=== PATIENT | female | born 1955 | race Asian ===

== ENCOUNTER → 2016-09-13 | Outpatient (CLI) | payer MEDICARE, OTHER, MEDICAID ==
[~2016-09-13] MED LIST: ATIVAN 0.50.5 MG/TAB PO; ATIVAN PO; BENADRYL 50MG C50 MG PO; BENADRYL25 M2 PO; CALCIUM 600/VIT1 CAP PO; CALCIUM CARB W/1 TAB PO; COLACE 100100 MG/CAP PO; DEBROX OT; EFFEXOR 75M75 MG/TAB PO; ELAVIL10 MG PO; EPA FISH OIL1 SGL PO; FLAX SEED OIL1000 MG PO; FOSAMAX 70MG TA70 MG PO; GABAPENTIN100 M1 PO; GINKO BILOBA60 MG PO; IMODIUM 2MG CAPS2 MG PO; LAMICTAL ODT50 MG MM; LAMICTAL200 MG PO; LORTAB 5/500 501 TAB; MACROBID 1100 MG/CAP PO; MAREPA1200 MG PO; MIRALAX PA17 GM/Dose PO; MOTRIN 200200 MG/TAB PO; MULTI VITAMINS1 TAB PO; MULTIPLE VITAMI1 CAP PO; NORCO 325 MG-51 TAB PO; PHENERGAN25 MG RC; PRAVACHOL 20MG20 MG PO; PRAVACHOL20 MG PO; PROZAC20 MG PO; SENOKOT S 50 MG1 TAB PO; SINGULAIR10 MG PO; TYLENOL 325MG325 MG PO; TYLENOL W/COD1 UDTAB PO; VENTOLIN0.09 MG IH; VITAMIN C500 MG PO; VITAMIN D1000 IU PO; VITAMIN E; VITAMIN E1000 U/CAP PO; XALATAN EYE DROPS OD; ZOFRAN 4MG T4 MG/TAB PO; ZYRTEC10 MG PO
== END ==
LOC: MC.RAD 13:54
DX: D48.61 Neoplasm of uncertain behavior of right breast (principal)

== ENCOUNTER → 2016-09-24 | Outpatient (CLI) | payer MEDICARE, OTHER, MEDICAID ==
[2016-09-24 09:53] LABS: ADJUSTED CALCIUM 8.7 mg/dL (8.4-10.2); ALBUMIN 4.3 gm/dL (3.5-5.0); BILIRUBIN,TOTAL 0.7 mg/dL (0.0-1.0); CALCIUM 8.9 mg/dL (8.4-10.2); CREATININE, serum 0.42 mg/dL (0.52-1.25); TOTAL PROTEIN 7.6 gm/dL (6.4-8.2)
== END ==
LOC: COL.LAB 08:39
PROVIDERS: Internal Medicine
DX: Z01.89 Encounter for other specified special examinations (principal)

== ENCOUNTER → 2016-09-28 | Outpatient (CLI) | payer MEDICARE, OTHER, MEDICAID | LOC: MC.RAD 09:43 | DX: C50.211 Malignant neoplasm of upper-inner quadrant of right female breast (principal) ==

== ENCOUNTER → 2016-11-03 | Outpatient (CLI) | payer MEDICARE, OTHER, MEDICAID | LOC: ZLAB.STJ 11:43 | DX: Z53.9 Procedure and treatment not carried out, unspecified reason (principal) ==

== ENCOUNTER → 2017-02-17 | Outpatient (CLI) | payer MEDICARE, OTHER, MEDICAID | LOC: COL.RAD 14:24 | DX: M85.88 Other specified disorders of bone density and structure, other site (principal) ==

== ENCOUNTER 2017-04-15 20:07 | Emergency (ER) | payer MEDICARE, MEDICAID ==
[~2017-04-15] VITALS: Ht 160 cm; Wt 68.2 kg
[~2017-04-15 20:07] MED LIST changes: -BENADRYL25 M2 PO; -DEBROX OT; -IMODIUM 2MG CAPS2 MG PO; -MIRALAX PA17 GM/Dose PO; -MOTRIN 200200 MG/TAB PO; -PHENERGAN25 MG RC; -TYLENOL W/COD1 UDTAB PO; -XALATAN EYE DROPS OD
[2017-04-15] MEDS ORDERED: IMODIUM 2MG CAPS2 MG PO (20:26)
[2017-04-15] MEDS ORDERED: DEBROX OT (20:29)
[2017-04-15] MEDS ORDERED: PHENERGAN25 MG RC (20:29)
[2017-04-15] MEDS ORDERED: LAMICTAL200 MG PO (20:30)
[2017-04-15] MEDS ORDERED: BENADRYL25 M2 PO (20:33)
[2017-04-15] MEDS ORDERED: MIRALAX PA17 GM/Dose PO (20:35)
[2017-04-15] MEDS ORDERED: TYLENOL W/COD1 UDTAB PO (20:35)
[2017-04-15] MEDS ORDERED: VENTOLIN0.09 MG IH (20:35)
[2017-04-15] MEDS ORDERED: ZOFRAN 4MG T4 MG/TAB PO (20:36)
[2017-04-15] MEDS ORDERED: XALATAN EYE DROPS OD (20:36)
[2017-04-15] MEDS ORDERED: MOTRIN 200200 MG/TAB PO (20:36)
[2017-04-15 20:50] LABS: BASO # 0.1 (0.0-0.2); BASO % 0.6 % (0.0-2.0); EOS # 0.2 (0.0-0.7); GRAN % 50.8 % (42.2-75.2); HEMATOCRIT 40.6 % (37.0-47.0); HEMOGLOBIN 13.7 g/dl (12.5-16.0); LYMPH # 2.8 (1.2-3.4); LYMPH % 35.7 % (20.0-51.0); MEAN CELL VOLUME 98 fl (80.0-100.0); MEAN CORPUSCULAR HEMOGLOBIN 33 pg (27.0-31.0); MEAN CORPUSCULAR HGB CONC 34 g/dl (33.0-37.0); MONO # 0.7 (0.1-0.6); MONO % 9.5 % (1.7-9.3); PLATELET COUNT 286 K/mm3 (130-400); RED BLOOD COUNT 4.14 M/mm3 (4.10-5.30); REDCELL DISTRIBUTION WIDTH-CV 11.7 % (11.5-14.5); WHITE BLOOD COUNT 7.8 K/mm3 (4.8-10.8)
[2017-04-15 20:52] LABS: PROTHROMBIN TIME 11.6 SECONDS (9.7-12.8)
[2017-04-15 20:55] LABS: PARTIAL THROMBOPLASTIN TIME 30.7 SECONDS (26.0-37.0)
[2017-04-15 21:06] LABS: ADJUSTED CALCIUM 8.9 mg/dL (8.4-10.2); ALANINE AMINOTRANSFERASE 56 U/L (9-52); ALBUMIN 4.2 gm/dL (3.5-5.0); ALKALINE PHOSPHATASE 86 U/L (50-136); ANION GAP 13 mmol/L (7-16); BILIRUBIN,TOTAL 0.5 mg/dL (0.0-1.0); BLOOD UREA NITROGEN 14 mg/dL (7-17); C-REACTIVE PROTEIN 1.1 mg/dL (0.0-0.9); CALCIUM 9.1 mg/dL (8.4-10.2); CARBON DIOXIDE 25 mmol/L (22-30); CHLORIDE 101 mmol/L (98-107); CREATININE, serum 0.43 mg/dL (0.52-1.25); GLUCOSE 115 mg/dL (74-106); POTASSIUM 3.7 mmol/L (3.4-5.0); SODIUM 140 mmol/L (137-145); TOTAL PROTEIN 7.4 gm/dL (6.4-8.2)
[2017-04-15 21:14] LABS: TROPONIN-I < 0.012 ng/mL (0.000-0.034)
[2017-04-15 21:19] VITALS: TEMP 98.5
[2017-04-15 23:01] VITALS: BP 118/82; PULSE 88
== END 2017-04-15 23:02 | disposition home or self-care (01) ==
LOC: COL.ER 20:07
PROVIDERS: Family Medicine
DX: R07.9 Chest pain, unspecified (principal); Z85.3 Personal history of malignant neoplasm of breast; G83.9 Paralytic syndrome, unspecified; B94.8 Sequelae of other specified infectious and parasitic diseases; G89.29 Other chronic pain; F32.9 Major depressive disorder, single episode, unspecified
CPT/HCPCS: J2270; J2405; Q9967

== ENCOUNTER → 2017-06-10 | Emergency (ER) | payer MEDICARE, MEDICAID ==
[~2017-06-10] VITALS: Ht 160 cm; Wt 68.2 kg
[~2017-06-10] MED LIST changes: +BENADRYL25 M2 PO; +DEBROX OT; +IMODIUM 2MG CAPS2 MG PO; +MIRALAX PA17 GM/Dose PO; +MOTRIN 200200 MG/TAB PO; +PHENERGAN25 MG RC; +TYLENOL W/COD1 UDTAB PO; +XALATAN EYE DROPS OD
[2017-06-10 09:01] VITALS: BP 140/81; PULSE 84; TEMP 98.2
== END ==
LOC: COL.ER 08:58
DX: R04.0 Epistaxis (principal)

== ENCOUNTER → 2017-07-19 | Outpatient (CLI) | payer MEDICARE, MEDICAID, OTHER ==
[2017-07-19 14:59] LABS: HEMOGLOBIN 15.1 g/dl (12.5-16.0); MEAN CELL VOLUME 98 fl (80.0-100.0); MEAN CORPUSCULAR HEMOGLOBIN 34 pg (27.0-31.0); MEAN CORPUSCULAR HGB CONC 34 g/dl (33.0-37.0); MEAN PLATELET VOLUME 9.1 fl (7.4-10.4); PLATELET COUNT 318 K/mm3 (130-400); RED BLOOD COUNT 4.51 M/mm3 (4.10-5.30)
[2017-07-19 15:18] LABS: ADJUSTED CALCIUM 9.2 mg/dL (8.4-10.2); BILIRUBIN,TOTAL 0.5 mg/dL (0.0-1.0); CREATININE, serum 0.49 mg/dL (0.52-1.25); TOTAL PROTEIN 8.4 gm/dL (6.4-8.2)
== END ==
LOC: COL.LAB 14:20
PROVIDERS: Internal Medicine Medical Oncology
DX: Z01.89 Encounter for other specified special examinations (principal)

== ENCOUNTER 2017-10-28 03:32 | Emergency (ER) | payer MEDICARE, MEDICAID, OTHER ==
[~2017-10-28] VITALS: Ht 160 cm; Wt 65.9 kg
[2017-10-28 03:37] VITALS: TEMP 97.8
[2017-10-28] MEDS ORDERED: ROXICODONE 55 MG/TAB PO (06:06)
[2017-10-28 06:56] VITALS: BP 108/66; PULSE 86
== END 2017-10-28 06:56 | disposition home or self-care (01) ==
LOC: COL.ER 03:32
DX: R07.89 Other chest pain (principal); G61.0 Guillain-Barre syndrome; C50.911 Malignant neoplasm of unspecified site of right female breast
CPT/HCPCS: J2270

== ENCOUNTER → 2017-11-23 | Outpatient (CLI) | payer MEDICARE, MEDICAID, OTHER ==
[~2017-11-23] MED LIST changes: +ROXICODONE 55 MG/TAB PO
[2017-11-23 09:43] LABS: COLLECTION METHOD CLEAN CATCH
[2017-11-23 10:23] LABS: MUCOUS Present /lpf; PH 5 (5-8); SQUAMOUS EPITHELIAL 0-2 /hpf; URINE APPEARANCE Clear; URINE BACTERIA None Seen /hpf; URINE BILIRUBIN Negative (NEGATIVE); URINE BLOOD Negative (NEGATIVE); URINE CALCIUM OXALATE CRYSTAL Present /hpf; URINE COLOR Yellow; URINE GLUCOSE Negative (NEGATIVE); URINE KETONE Negative (NEGATIVE); URINE LEUKOCYTE ESTERASE Negative (NEGATIVE); URINE NITRATE Negative (NEGATIVE); URINE PROTEIN(semi-quant) Negative (NEGATIVE); URINE RBC 0-2 /hpf; URINE UROBILINOGEN Negative (NEGATIVE)
== END ==
LOC: ZLAB.STJ 09:40
PROVIDERS: Nurse Practitioner
DX: N39.0 Urinary tract infection, site not specified (principal)

== ENCOUNTER 2018-02-10 15:48 | Emergency (ER) | payer MEDICARE, MEDICAID, OTHER ==
[~2018-02-10] VITALS: Ht 160 cm; Wt 68.2 kg
[2018-02-10 15:53] VITALS: TEMP 99.5
[2018-02-10 16:32] LABS: BASO # 0.1 (0.0-0.2); BASO % 0.7 % (0.0-2.0); EOS # 0.5 (0.0-0.7); EOS % 6.7 % (0-4.0); GRAN # 4.2 (1.4-6.5); GRAN % 59.8 % (42.2-75.2); HEMOGLOBIN 10.8 g/dl (12.5-16.0); LYMPH # 1.6 (1.2-3.4); LYMPH % 22.3 % (20.0-51.0); MEAN CELL VOLUME 97 fl (80.0-100.0); MEAN CORPUSCULAR HEMOGLOBIN 32 pg (27.0-31.0); MEAN CORPUSCULAR HGB CONC 33 g/dl (33.0-37.0); MEAN PLATELET VOLUME 8.8 fl (7.4-10.4); MONO # 0.7 (0.1-0.6); MONO % 10.2 % (1.7-9.3); PLATELET COUNT 296 K/mm3 (130-400); RED BLOOD COUNT 3.33 M/mm3 (4.10-5.30); REDCELL DISTRIBUTION WIDTH-CV 12.3 % (11.5-14.5)
[2018-02-10 16:34] LABS: HEMATOCRIT 32.3 % (37.0-47.0)
[2018-02-10 16:37] LABS: INR 1.1 (0.8-3.0); PROTHROMBIN TIME 12.1 SECONDS (9.7-12.8)
[2018-02-10 16:41] LABS: ALBUMIN 3.3 gm/dL (3.5-5.0); BILIRUBIN,TOTAL 0.3 mg/dL (0.0-1.0); CALCIUM 8.4 mg/dL (8.4-10.2); CREATININE, serum 0.5 mg/dL (0.52-1.25); POTASSIUM 3.7 mmol/L (3.4-5.0); TOTAL PROTEIN 6.6 gm/dL (6.4-8.2)
[2018-02-10] MEDS ORDERED: ALMACONE 360 M360 ML PO (16:42)
[2018-02-10] MEDS ORDERED: NEURONTIN100 MG/CAP PO (16:47)
[2018-02-10] MEDS ORDERED: ZADITOR 5 ML5 ML OP (16:50)
[2018-02-10] MEDS ORDERED: DIPROLENE OI 15GM (16:55)
[2018-02-10] MEDS ORDERED: METROLOTION 5959 ML TP (16:55)
[2018-02-10] MEDS ORDERED: SYSTANE 0.4%-0.1 SOL OP (16:56)
[2018-02-10] MEDS ORDERED: FENTANYL 25 MCG TD (16:57)
[2018-02-10] MEDS ORDERED: TUMS500 MG (16:57)
[2018-02-10] MEDS ORDERED: DILAUDID-51 MG/M1 PO (16:57)
[2018-02-10] MEDS ORDERED: TYLENOL W/COD1 UDTAB PO (16:58)
[2018-02-10] MEDS ORDERED: ASPERCREME1 EACH TP (16:58)
[2018-02-10 17:46] VITALS: BP 127/72; PULSE 82
== END 2018-02-10 17:46 | disposition home or self-care (01) ==
LOC: COL.ER 15:48
PROVIDERS: Family Medicine
DX: N64.9 Disorder of breast, unspecified (principal); Z85.3 Personal history of malignant neoplasm of breast
CPT/HCPCS: J7120

== ENCOUNTER 2018-02-20 09:16 | Inpatient (IN) | payer MEDICARE, MEDICAID ==
[~2018-02-20] VITALS: Ht 160 cm; Wt 62.7 kg
[~2018-02-20 09:16] MED LIST changes: +ALMACONE 360 M360 ML PO; +ASPERCREME1 EACH TP; -ATIVAN PO; +DILAUDID-51 MG/M1 PO; +DIPROLENE OI 15GM; -EFFEXOR 75M75 MG/TAB PO; +EFFEXOR XR75 MG/CAP PO; +FENTANYL 25 MCG TD; +METROLOTION 5959 ML TP; +NEURONTIN100 MG/CAP PO; +SYSTANE 0.4%-0.1 SOL OP; +TUMS500 MG; +ZADITOR 5 ML5 ML OP
[2018-02-22] VITALS (10 sets, daily range): BP systolic 90–147; BP diastolic 41–80; PULSE 76–107; TEMP 98–99.3
[2018-02-22] MEDS ORDERED: HYDROCORTISONE30 G3 TP (13:22)
[2018-02-22] MEDS ORDERED: ZYRTEC ALLERGY10 MG PO (13:23)
[2018-02-23 03:58] VITALS: BP 107/62; PULSE 80; TEMP 98.5
[2018-02-23 07:20] VITALS: BP 101/45; PULSE 89; TEMP 98.3
[2018-02-23 12:32] VITALS: BP 107/47; PULSE 68; TEMP 98.2
[2018-02-23 15:33] VITALS: BP 106/38; PULSE 99; TEMP 98.2
[2018-02-23 19:42] VITALS: BP 106/41; PULSE 92; TEMP 98.3
[2018-02-23 23:10] VITALS: BP 96/45; PULSE 90; TEMP 98.6
[2018-02-24 03:12] VITALS: BP 92/41; PULSE 87; TEMP 98.4
[2018-02-24 07:49] VITALS: BP 94/43; PULSE 87; TEMP 98.2
[2018-02-24 10:44] VITALS: BP 94/43; PULSE 87; TEMP 98.2
== END 2018-02-24 11:15 | DRG 582 ==
LOC: INPTSU 02-22 10:52 → SDCO 02-22 13:30 → SURG 02-22 13:30 → EDSTATUS 02-22 13:30 → SURG 02-22 16:35 → PEDS 02-24 08:45 → SURG 02-24 11:15
PROVIDERS: Surgery
PROC: 0HBT0ZZ Excision of Right Breast, Open Approach (ICD-10-PCS; principal; 2018-02-22 13:30)
DX: C50.211 Malignant neoplasm of upper-inner quadrant of right female breast (principal); G61.0 Guillain-Barre syndrome; C77.3 Secondary and unspecified malignant neoplasm of axilla and upper limb lymph nodes; M62.81 Muscle weakness (generalized); I10 Essential (primary) hypertension; E11.42 Type 2 diabetes mellitus with diabetic polyneuropathy; G62.9 Polyneuropathy, unspecified
CPT/HCPCS: J0690; J1100; J2250; J2270; J2405; J2704; J2795; J3010; J7120

== ENCOUNTER → 2018-03-29 | Outpatient (CLI) | payer MEDICARE, MEDICAID ==
[~2018-03-29] MED LIST changes: +HYDROCORTISONE30 G3 TP; +ZYRTEC ALLERGY10 MG PO
== END ==
LOC: ZCOL.LAB 14:17
DX: C50.211 Malignant neoplasm of upper-inner quadrant of right female breast (principal); T81.4XXA Infection following a procedure, initial encounter

== ENCOUNTER → 2018-07-06 | Outpatient (CLI) | payer MEDICARE, MEDICAID ==
[2018-07-06 13:23] LABS: COLLECTION METHOD CLEAN CATCH
[2018-07-06 13:56] LABS: MUCOUS Present /lpf; PH 6 (5-8); SQUAMOUS EPITHELIAL None Seen /hpf; URINE APPEARANCE Clear; URINE BACTERIA None Seen /hpf; URINE BILIRUBIN Negative (NEGATIVE); URINE BLOOD Negative (NEGATIVE); URINE COLOR Yellow; URINE GLUCOSE 2+ (NEGATIVE); URINE KETONE Negative (NEGATIVE); URINE LEUKOCYTE ESTERASE Negative (NEGATIVE); URINE NITRATE Negative (NEGATIVE); URINE PROTEIN(semi-quant) Negative (NEGATIVE); URINE RBC 0-2 /hpf; URINE UROBILINOGEN Negative (NEGATIVE)
== END ==
LOC: ZLAB.STJ 13:12
PROVIDERS: Internal Medicine
DX: R29.2 Abnormal reflex (principal)